=== PATIENT | female | born 1975 | race Caucasian/White ===

== ENCOUNTER 2020-04-07 16:04 | Emergency (ER) | payer OTHER ==
[~2020-04-07] VITALS: Ht 172.7 cm; Wt 81.7 kg
[~2020-04-07 16:04] MED LIST: ACETAMINOPHEN-1 EAC1 PO; AMBIEN 5 MG TABL5 M1 PO; ERY-TAB500 MG PO; HYDROCODON-ACE1 EAC7 PO; LIDOCAINE VISC100 M1 SWISH&SPIT; OXYCODONE HCL5 M1 PO; OXYCONTIN10 M1 PO; PROZAC20 MG PO; SEROQUEL 25 MG25 M1 PO; XANAX 0.25 MG0.25 MG PO; XANAX1 MG PO
[2020-04-07] MEDS ORDERED: VISTARIL 25 MG25 M1 PO (16:14)
[2020-04-07] MEDS ORDERED: VISTARIL 25 MG25 M1 (16:14)
[2020-04-07] MEDS ORDERED: CYMBALTA20 MG PO (16:15)
[2020-04-07] MEDS ORDERED: DESYREL150 MG PO (16:15)
[2020-04-07] MEDS ORDERED: LYRICA25 MG PO (16:15)
[2020-04-07] MEDS ORDERED: ESTROGEN (16:15)
[2020-04-07] MEDS ORDERED: HYDROCODON-ACE1 EAC7 PO (18:12)
[2020-04-07] MEDS ORDERED: CYCLOBENZAPRINE5 MG PO (18:12)
[2020-04-07] MEDS ORDERED: PREDNISONE50 MG PO (18:12)
[2020-04-07 18:30] VITALS: BP 130/76
== END 2020-04-07 18:32 | disposition home or self-care (01) ==
LOC: M.ERS 16:04
DX: S33.5XXA Sprain of ligaments of lumbar spine, initial encounter (principal); F17.210 Nicotine dependence, cigarettes, uncomplicated; Z90.49 Acquired absence of other specified parts of digestive tract; Z90.710 Acquired absence of both cervix and uterus; Z98.51 Tubal ligation status; Z88.0 Allergy status to penicillin; X50.9XXA Other and unspecified overexertion or strenuous movements or postures, initial encounter; Y93.89 Activity, other specified; Y92.89 Other specified places as the place of occurrence of the external cause; Y99.8 Other external cause status

== ENCOUNTER 2020-10-11 18:16 | Inpatient (IN) | payer OTHER, MEDICAID ==
[~2020-10-11] VITALS: Ht 172.7 cm; Wt 77.1 kg
[~2020-10-11 18:16] MED LIST changes: +CYCLOBENZAPRINE5 MG PO; +CYMBALTA20 MG PO; +DESYREL150 MG PO; +ESTROGEN; +LYRICA25 MG PO; +PREDNISONE50 MG PO; +VISTARIL 25 MG25 M1; +VISTARIL 25 MG25 M1 PO
[2020-10-11 18:25] VITALS: BP 116/75
[2020-10-11] MEDS ORDERED: SEROQUEL 50 MG50 M1 PO (18:28)
[2020-10-11] MEDS ORDERED: BUSPAR30 MG PO (18:29)
[2020-10-11 18:55] LABS: URINE BILIRUBIN NEGATIVE (Negative); URINE BLOOD 1+ (Negative); URINE CLARITY CLEAR; URINE COLOR YELLOW; URINE GLUCOSE-RANDOM NEGATIVE (Negative); URINE KETONES NEGATIVE (Negative); URINE LEUKOCYTES-REFLEX NEGATIVE (Negative); URINE NITRITE-REFLEX NEGATIVE (Negative); URINE PROTEIN NEGATIVE (Negative); URINE UROBILINOGEN 0.2 E.U./dl (0.2-1.0)
[2020-10-11 18:59] LABS: ABSOLUTE BASOPHILS 0.1 thou/uL (0.0-0.2); ABSOLUTE EOSINOPHILS 0.2 thou/uL (0.0-0.7); ABSOLUTE LYMPHOCYTES 2.6 thou/uL (0.8-5.3); ABSOLUTE MONOCYTES 0.7 thou/uL (0.0-1.2); BASOPHILS 0.6 %; EOSINOPHILS 1.6 %; HEMOGLOBIN 12.9 gm/dL (12.0-15.0); LYMPHOCYTES 27.2 %; MCH 30.2 pg (26.0-34.0); MCHC 33.8 g/dL (28.0-37.0); MCV 89.2 fL (80.0-100.0); MONOCYTES 7.1 %; MPV 7.5 fl. (7.2-11.1); NUCLEATED RBCS 0 /100WBC; PLATELET COUNT* 341 thou/uL (150-400); POLYS 63.5 %; RBC 4.26 mil/uL (4.20-5.00); RDW-CV 14.1 % (10.5-14.5); WBC 9.5 thou/uL (4.0-11.0)
[2020-10-11 19:01] LABS: CALCIUM 8.7 mg/dL (8.5-10.1); CREATININE 0.9 mg/dL (0.6-1.3); POTASSIUM 3.7 mmol/L (3.5-5.1)
[2020-10-11 19:02] LABS: MUCUS 4-6 Moderate strn/LPF (None Seen); SQUAMOUS >10 Many /LPF (0-3)
[2020-10-11 19:04] LABS: BACTERIA-REFLEX 1-9 Few /HPF (None Seen); CASTS None Seen /LPF (None Seen); CRYSTALS None Seen /LPF (None Seen); URINE RBC 0-2 Rare /HPF (0-2); URINE WBC-REFLEX 0-5 Rare /HPF (0-5)
[2020-10-11 19:05] LABS: ALBUMIN 3.5 g/dL (3.4-5.0); TOTAL BILIRUBIN 0.3 mg/dL (<0.1-1.0); TOTAL PROTEIN 7.2 g/dL (6.4-8.2)
[2020-10-11 22:53] VITALS: BP 105/65
[2020-10-11 23:13] VITALS: BP 129/73
--- NOTE | 2020-10-12 04:36 | NUR ---
PT HERE AROUND 0000. PAIN AN ISSUE, REPORTING /. RECEIVING MORPHINE/ZOFRAN Q4. NPO SINCE ARRIVAL WITH EXCEPTION OF A FEW ICE CHIPS. SHE HAS HAD IV FLUIDS ALL SHIFT. ALERT AND ORIENTED, ROOM AIR, UP AD SHONNA. SHE REPORTED SOME NAUSEA BUT NO VOMITING, PAIN STILL AN ISSUE.
[2020-10-12 05:44] LABS: ABSOLUTE EOSINOPHILS 0.1 thou/uL (0.0-0.7); ABSOLUTE LYMPHOCYTES 3.1 thou/uL (0.8-5.3); ABSOLUTE MONOCYTES 0.6 thou/uL (0.0-1.2); ABSOLUTE NEUTROPHILS 3.7 thou/uL (1.6-8.1); BASOPHILS 0.5 %; EOSINOPHILS 1.7 %; HEMATOCRIT 37.4 % (37.0-47.0); HEMOGLOBIN 12.3 gm/dL (12.0-15.0); LYMPHOCYTES 40.9 %; MCH 29.5 pg (26.0-34.0); MCHC 32.9 g/dL (28.0-37.0); MCV 89.5 fL (80.0-100.0); MONOCYTES 7.6 %; MPV 7.6 fl. (7.2-11.1); NUCLEATED RBCS 0 /100WBC; PLATELET COUNT* 333 thou/uL (150-400); POLYS 49.3 %; RBC 4.17 mil/uL (4.20-5.00); RDW-CV 14.1 % (10.5-14.5); WBC 7.5 thou/uL (4.0-11.0)
[2020-10-12 05:46] LABS: CREATININE 0.8 mg/dL (0.6-1.3); POTASSIUM 3.8 mmol/L (3.5-5.1)
[2020-10-12 05:51] LABS: TOTAL BILIRUBIN 0.4 mg/dL (<0.1-1.0); TOTAL PROTEIN 6.4 g/dL (6.4-8.2)
[2020-10-12 16:00] VITALS: BP 93/50
--- NOTE | 2020-10-12 17:50 | NUR ---
Pt remained A&O x4 for entire shift. Vital signs stable. Pt in severe pain this morning and needing the IV pain medication frequency increased from Q3 to Q4. Pt also notified Dr. Rashid during her rounds that she had a severe headache. Dr. Rashid ordered meds and they were given. Pt stated she felt like it helped. Pt later informed surgery that she really wants to go home today. Surgery stated that she was clear from their standpoint. I spoke with the pt educating her that if she left she would be without the IV pain medication and pt felt like she could handle the pain until her follow up with a GI doctor on 10/22. Dr. Rashid was paged and agreed that it was not safe for pt to discharge home at this time. Pt's diet was advanced and oral pain meds started so that we could look to get off the IV pain medications and tolerate more food. Pt noted later that she had another headache. Pt given Tylenol and benedryl. Bed in low position, call light within reach.
[2020-10-12 20:13] VITALS: BP 100/50
[2020-10-13 05:17] LABS: HEMATOCRIT 35.2 % (37.0-47.0); HEMOGLOBIN 11.9 gm/dL (12.0-15.0); MCH 30.5 pg (26.0-34.0); MCHC 33.7 g/dL (28.0-37.0); MCV 90.3 fL (80.0-100.0); MPV 7.6 fl. (7.2-11.1); RBC 3.9 mil/uL (4.20-5.00); RDW-CV 14.1 % (10.5-14.5); WBC 5.6 thou/uL (4.0-11.0)
--- NOTE | 2020-10-13 05:23 | NUR ---
PT RECEIVE NORCO Q3 FOR PAIN, FLUIDS SCHEDULED. SHE WAS ABLE TO SLEEP ALL NIGHT. SHE IS STILL HAVING SIGNIFICANT PAIN 02/13. ROOM AIR, ALERT AND ORIENTED. TOLERATING DIET/FLUIDS WELL.
[2020-10-13 05:42] LABS: ALBUMIN 2.7 g/dL (3.4-5.0); CALCIUM 7.9 mg/dL (8.5-10.1); CREATININE 0.7 mg/dL (0.6-1.3); MAGNESIUM 2.2 mg/dL (1.8-2.4); POTASSIUM 3.9 mmol/L (3.5-5.1); TOTAL BILIRUBIN 0.4 mg/dL (<0.1-1.0); TOTAL PROTEIN 5.9 g/dL (6.4-8.2)
[2020-10-13 08:00] VITALS: BP 111/59
[2020-10-13] MEDS ORDERED: CIPRO500 M1 PO (08:28)
[2020-10-13] MEDS ORDERED: FLAGYL500 M1 PO (08:28)
[2020-10-13] MEDS ORDERED: HYDROCODON-ACE1 EAC7 PO (08:29)
[2020-10-13 10:20] LABS: % SATURATION 24 % (20-39); IRON 82 ug/dL (50-175)
[2020-10-13 11:09] VITALS: BP 111/59
--- NOTE | 2020-10-13 12:22 | NUR ---
Pt remained A&O x4. Pt complained of pain and given meds per MAR. Pt was going to get a colonoscopy tomorrow but has court instead so she could not stay. Pt discharged. Pt has outpatient appointment with GI on 10/22. Pt ambulated outof building using steady gait.
[2020-10-13 12:29] VITALS: BP 111/59
--- NOTE | 2020-10-13 15:20 | EKG ---
[place] [address] ELECTROCARDIOGRAM REPORT Name: AIDA FONTANA Room: [address] IN .R.#: [id number] Admission: 10/11/20 Attend Phys: Jaelyn Rashid, Discharge: 10/13/20 Date of : 79 Date of Service: 10/11/20 1900 Report #: [id number] THIS REPORT FOR: //name// [facility] ED Test Date: 2020-10-11 Test Time: 19:00:00 Pat Name: AIDA FONTANA Department: Room: [facility] Gender: F Seasonal Package Handler: CASSIDY : 1975 Requested By: Francheska Erickson Order Number: [id number] MD: Kennedy Whiting Measurements Intervals [place] Rate: 63 P: 36 [place]: 154 QRS: 63 QRSD: 89 T: 62 QT: 401 QTc: 411 Interpretive Statements Sinus rhythm Abnormal inferior Q waves Compared to ECG 08/09/2014 13:44:50 Inferior Q waves persist Electronically Signed On 10-13-2020 15:19:59 CDT by Kennedy Whiting [email or web address] <ELECTRONICALLY SIGNED> By: Kennedy Whiting MD, [facility] 10/13/20 1519 190 190 Kennedy Whiting MD, [facility] /EPI
--- NOTE | 2020-10-15 15:34 | CON ---
[address] [address] CONSULTATION Name: AIDA FONTANA Room: [address] [place] .R.#: [id number] Admission: 10/11/20 Attend Phys: Jaelyn Rashid MD Discharge: 10/13/20 Date of : 79 Report #: [id number] THIS REPORT FOR: cc: FAM - No family physician/PCP FAM - No family physician/PCP Tone Alanis DO ~ DOC #: [id number] SURENDRA Ralph DATE OF CONSULTATION: 10/13/2020 The patient does not have a PCP. Please note at the time of this dictation, the patient was seen and physically examined by myself. REASON FOR CONSULTATION: Abdominal pain, colitis. HISTORY OF PRESENT ILLNESS: This is a 45-year-old female who states she has been having lower abdominal pain over the past two weeks, which has progressively gotten worse where she could not take it any longer, whom she has an appointment with us on 10/22 and could not last that long, prompting her to come in to be seen. She states the pain is sharp and made worse with walking and activity, coughing and sneezing. She states her last bowel movement was the day of admission and it was soft with some bright red blood noted which she has not had before. She also is having some nausea, but no fever, chills or any vomiting. She does have a longstanding history of chronic back pain. The patient has never seen a GI doctor before in the past. ALLERGIES: PENICILLIN. MEDICATIONS: From home, Cymbalta, estrogen, Seroquel and BuSpar. PAST MEDICAL HISTORY: Chronic back pain. PAST SURGICAL HISTORY: Cholecystectomy, tubal ligation, tonsil and adenoidectomy, broken arm with surgery and hysterectomy. FAMILY HISTORY: Negative for any GI or female cancers or autoimmune disease. SOCIAL HISTORY: She is a tobacco user. Denies any alcohol or illegal drug use. REVIEW OF SYSTEMS: Twelve point review of systems is essentially negative except what is mentioned in the HPI. PHYSICAL EXAMINATION: [place] [address] CONSULTATION Name: AIDA FONTANA Room: [address] IN [facility]#: [id number] Admission: 10/11/20 Attend Phys: Jaelyn Rashid MD Discharge: 10/13/20 Date of : 79 Report #: [id number] VITAL SIGNS: Temperature 36.3, pulse 64, respirations are 18, blood pressure 100/50. HEART: Regular rate and rhythm. LUNGS: Clear. ABDOMEN: Soft, positive bowel sounds in all four quadrants with tenderness noted in the lower quad, more so towards the right. LABORATORY DATA: Hemoglobin is 11.9, white count is 5.6, platelets 297. LFTs are normal. GFR is 91. IMAGING: CT shows some thickening of the tissues and inflammation along the right pelvic sidewall, tip of the appendix terminates in this region. Remainder of appendix appears normal. Tips of the appendicitis could give this appearance, fibrosing and scarring could be given her past history of hysterectomy and pelvic surgery and also she has some right hydronephrosis and hydroureter as well. ASSESSMENT: 1. Abdominal pain. 2. Diarrhea. 3. Blood in stool. 4. Nausea, intermittent. 5. Abnormal CT. 6. Mild anemia. PLAN: 1. Colonoscopy tomorrow with Dr. Alanis. 2. Further recommendations to be made after the procedure has been performed. 3. Prep and clear liquids today. Thank you for allowing us to participate in this patient's care. Please do not hesitate to call with any questions regarding this consultation. Tone Alanis DO JLB/GAU <ELECTRONICALLY SIGNED> By: Tone Alanis DO 10/15/20 1534 [id number] Alanis DO /nt
== END 2020-10-13 12:15 | disposition home or self-care (01) | DRG 392 ==
LOC: M.ERS 18:16 → M.ORTHSURG 22:21 → M.TBA-ER 22:21 → M.ORTHSURG 22:54
PROVIDERS: Nurse Practitioner Adult Health; Nurse Practitioner Family; Surgery; ADMIT Internal Medicine; ATTEND Internal Medicine
DX: K52.9 Noninfective gastroenteritis and colitis, unspecified (principal); N13.30 Unspecified hydronephrosis; N13.4 Hydroureter; F41.9 Anxiety disorder, unspecified; F32.9 Major depressive disorder, single episode, unspecified; G89.29 Other chronic pain; M54.9 Dorsalgia, unspecified; D64.9 Anemia, unspecified; G43.909 Migraine, unspecified, not intractable, without status migrainosus; Z20.822 Contact with and (suspected) exposure to COVID-19; Z90.49 Acquired absence of other specified parts of digestive tract; Z90.710 Acquired absence of both cervix and uterus; Z79.899 Other long term (current) drug therapy; Z88.0 Allergy status to penicillin

== ENCOUNTER 2020-10-22 18:11 | Emergency (ER) | payer OTHER, MEDICAID ==
[~2020-10-22] VITALS: Ht 172.7 cm; Wt 77.1 kg
[~2020-10-22 18:11] MED LIST changes: +BUSPAR30 MG PO; +CIPRO500 M1 PO; +FLAGYL500 M1 PO; +SEROQUEL 50 MG50 M1 PO
[2020-10-22] MEDS ORDERED: NAPROSYN500 MG PO (19:30)
[2020-10-22 19:47] VITALS: BP 120/80
== END 2020-10-22 19:48 | disposition home or self-care (01) ==
LOC: M.ERS 18:11
DX: S60.211A Contusion of right wrist, initial encounter (principal); S60.221A Contusion of right hand, initial encounter; F41.9 Anxiety disorder, unspecified; F32.9 Major depressive disorder, single episode, unspecified; F17.210 Nicotine dependence, cigarettes, uncomplicated; Z90.49 Acquired absence of other specified parts of digestive tract; Z98.51 Tubal ligation status; Z90.711 Acquired absence of uterus with remaining cervical stump; Z79.899 Other long term (current) drug therapy; Z79.2 Long term (current) use of antibiotics; Z88.0 Allergy status to penicillin; Y08.89XA Assault by other specified means, initial encounter; Y93.89 Activity, other specified; Y92.89 Other specified places as the place of occurrence of the external cause; Y99.8 Other external cause status

== ENCOUNTER 2020-11-03 18:59 | Emergency (ER) | payer OTHER, MEDICAID ==
[~2020-11-03] VITALS: Ht 172.7 cm; Wt 86.2 kg
[~2020-11-03 18:59] MED LIST changes: +NAPROSYN500 MG PO
[2020-11-03] MEDS ORDERED: CLONAZEPAM 0.50.5 M1 PO (19:09)
[2020-11-03] MEDS ORDERED: PROPRANOLOL 4040 M1 PO (19:09)
[2020-11-03] MEDS ORDERED: LAMOTRIGINE250 MG PO (19:10)
[2020-11-03 19:28] LABS: ABSOLUTE BASOPHILS 0.1 thou/uL (0.0-0.2); ABSOLUTE EOSINOPHILS 0.2 thou/uL (0.0-0.7); ABSOLUTE MONOCYTES 0.5 thou/uL (0.0-1.2); ABSOLUTE NEUTROPHILS 3.7 thou/uL (1.6-8.1); BASOPHILS 0.9 %; EOSINOPHILS 2.2 %; HEMATOCRIT 39.2 % (37.0-47.0); HEMOGLOBIN 13.4 gm/dL (12.0-15.0); LYMPHOCYTES 39.9 %; MCH 30.1 pg (26.0-34.0); MCHC 34.2 g/dL (28.0-37.0); MCV 88.1 fL (80.0-100.0); MONOCYTES 7.1 %; MPV 7.7 fl. (7.2-11.1); NUCLEATED RBCS 0 /100WBC; PLATELET COUNT* 340 thou/uL (150-400); POLYS 49.9 %; RBC 4.45 mil/uL (4.20-5.00); RDW-CV 13.9 % (10.5-14.5); WBC 7.5 thou/uL (4.0-11.0)
[2020-11-03 19:31] LABS: URINE BILIRUBIN NEGATIVE (Negative); URINE BLOOD 1+ (Negative); URINE CLARITY CLEAR; URINE COLOR YELLOW; URINE GLUCOSE-RANDOM NEGATIVE (Negative); URINE KETONES NEGATIVE (Negative); URINE LEUKOCYTES-REFLEX NEGATIVE (Negative); URINE NITRITE-REFLEX NEGATIVE (Negative); URINE PROTEIN NEGATIVE (Negative); URINE UROBILINOGEN 0.2 E.U./dl (0.2-1.0)
[2020-11-03 19:36] LABS: ANION GAP 9 mmol/L (7-16); BUN 9 mg/dL (7-18); CALCIUM 9.1 mg/dL (8.5-10.1); CHLORIDE 106 mmol/L (98-107); CO2 29 mmol/L (21-32); CREATININE 0.8 mg/dL (0.6-1.3); GLUCOSE 87 mg/dL (70-99); POTASSIUM 3.7 mmol/L (3.5-5.1); SODIUM 144 mmol/L (136-145)
[2020-11-03 19:37] LABS: AMP/METHAMP Negative (Negative); BARBITURATES Negative (Negative); BENZODIAZEPINES Negative (Negative); COCAINE Negative (Negative); METHADONE Negative (Negative); OPIATES Negative (Negative); PCP Negative (Negative); THC Negative (Negative)
[2020-11-03 19:40] LABS: ALBUMIN 3.6 g/dL (3.4-5.0); ALKALINE PHOSPHATASE 105 U/L (46-116); LIPASE 186 U/L (73-393); SGOT 15 U/L (15-37); SGPT 29 U/L (30-65); TOTAL BILIRUBIN < 0.1 mg/dL (<0.1-1.0); TOTAL PROTEIN 7.4 g/dL (6.4-8.2)
[2020-11-03 19:43] LABS: BACTERIA-REFLEX 1-9 Few /HPF (None Seen); CASTS None Seen /LPF (None Seen); CRYSTALS None Seen /LPF (None Seen); SQUAMOUS 0-3 Few /LPF (0-3); URINE WBC-REFLEX 0-5 Rare /HPF (0-5)
[2020-11-03 19:44] LABS: URINE RBC 0-2 Rare /HPF (0-2)
[2020-11-03] MEDS ORDERED: BENTYL 10 MG CA10 M1 PO (22:22)
[2020-11-03] MEDS ORDERED: NEURONTIN100 MG PO (22:22)
[2020-11-03 23:05] VITALS: BP 121/77
== END 2020-11-03 23:05 | disposition home or self-care (01) ==
LOC: M.ERS 18:59
PROVIDERS: Emergency Medicine
DX: R10.31 Right lower quadrant pain (principal); F17.210 Nicotine dependence, cigarettes, uncomplicated; Z88.0 Allergy status to penicillin; Z79.899 Other long term (current) drug therapy; Z90.49 Acquired absence of other specified parts of digestive tract; Z90.710 Acquired absence of both cervix and uterus; Z98.890 Other specified postprocedural states; Z98.51 Tubal ligation status

== ENCOUNTER 2020-12-23 13:29 | Emergency (ER) | payer OTHER, MEDICAID ==
[~2020-12-23] VITALS: Ht 172.7 cm; Wt 88.5 kg
[~2020-12-23 13:29] MED LIST changes: +BENTYL 10 MG CA10 M1 PO; +CLONAZEPAM 0.50.5 M1 PO; +LAMOTRIGINE250 MG PO; +NEURONTIN100 MG PO; +PROPRANOLOL 4040 M1 PO
[2020-12-23 14:50] LABS: URINE BILIRUBIN NEGATIVE (Negative); URINE BLOOD 1+ (Negative); URINE CLARITY CLEAR; URINE COLOR YELLOW; URINE GLUCOSE-RANDOM NEGATIVE (Negative); URINE KETONES NEGATIVE (Negative); URINE LEUKOCYTES-REFLEX 1+ (Negative); URINE NITRITE-REFLEX NEGATIVE (Negative); URINE PROTEIN NEGATIVE (Negative); URINE SPECIFIC GRAVITY <= 1.005 (1.005-1.030); URINE UROBILINOGEN 0.2 E.U./dl (0.2-1.0)
[2020-12-23 14:55] LABS: SQUAMOUS 0-3 Few /LPF (0-3); URINE WBC-REFLEX 0-5 Rare /HPF (0-5)
[2020-12-23 14:56] LABS: BACTERIA-REFLEX 1-9 Few /HPF (None Seen); CASTS None Seen /LPF (None Seen); CRYSTALS None Seen /LPF (None Seen); URINE RBC 3-10 Few /HPF (0-2)
[2020-12-23 15:06] LABS: ABSOLUTE BASOPHILS 0.1 thou/uL (0.0-0.2); ABSOLUTE EOSINOPHILS 0.1 thou/uL (0.0-0.7); ABSOLUTE LYMPHOCYTES 2.2 thou/uL (0.8-5.3); ABSOLUTE MONOCYTES 0.6 thou/uL (0.0-1.2); ABSOLUTE NEUTROPHILS 5.6 thou/uL (1.6-8.1); BASOPHILS 0.7 %; EOSINOPHILS 1.6 %; HEMATOCRIT 40.4 % (37.0-47.0); HEMOGLOBIN 13.8 gm/dL (12.0-15.0); LYMPHOCYTES 25.8 %; MCV 88.1 fL (80.0-100.0); MONOCYTES 7.3 %; MPV 7.8 fl. (7.2-11.1); NUCLEATED RBCS 0 /100WBC; PLATELET COUNT* 321 thou/uL (150-400); POLYS 64.6 %; RBC 4.59 mil/uL (4.20-5.00); RDW-CV 13.3 % (10.5-14.5); WBC 8.7 thou/uL (4.0-11.0)
[2020-12-23 15:19] LABS: CALCIUM 8.5 mg/dL (8.5-10.1); CREATININE 0.7 mg/dL (0.6-1.3); POTASSIUM 3.9 mmol/L (3.5-5.1)
[2020-12-23 15:24] LABS: ALBUMIN 3.3 g/dL (3.4-5.0); TOTAL BILIRUBIN 0.2 mg/dL (<0.1-1.0); TOTAL PROTEIN 7.2 g/dL (6.4-8.2)
[2020-12-23] MEDS ORDERED: BENTYL 10 MG CA10 MG PO (16:41)
[2020-12-23 16:58] VITALS: BP 112/72
== END 2020-12-23 16:58 | disposition home or self-care (01) ==
LOC: M.ERS 13:29
PROVIDERS: Nurse Practitioner Family; Nurse Practitioner Psychiatric/Mental Health
DX: R10.84 Generalized abdominal pain (principal); F17.210 Nicotine dependence, cigarettes, uncomplicated; Z88.0 Allergy status to penicillin; Z90.49 Acquired absence of other specified parts of digestive tract; Z98.51 Tubal ligation status; Z90.710 Acquired absence of both cervix and uterus; Z90.89 Acquired absence of other organs

== ENCOUNTER 2021-01-16 11:24 | Emergency (ER) | payer OTHER, MEDICAID ==
[~2021-01-16] VITALS: Ht 172.7 cm; Wt 88.5 kg
[~2021-01-16 11:24] MED LIST changes: +BENTYL 10 MG CA10 MG PO
[2021-01-16 12:38] LABS: ABSOLUTE MONOCYTES 0.5 thou/uL (0.0-1.2); ABSOLUTE NEUTROPHILS 2.9 thou/uL (1.6-8.1); BASOPHILS 0.9 %; EOSINOPHILS 0.4 %; HEMATOCRIT 39.1 % (37.0-47.0); HEMOGLOBIN 12.9 gm/dL (12.0-15.0); MCH 28.8 pg (26.0-34.0); MCHC 33.1 g/dL (28.0-37.0); MCV 87.1 fL (80.0-100.0); MPV 7.5 fl. (7.2-11.1); NUCLEATED RBCS 0 /100WBC; PLATELET COUNT* 254 thou/uL (150-400); POLYS 64.7 %; RBC 4.49 mil/uL (4.20-5.00); RDW-CV 13.5 % (10.5-14.5); WBC 4.5 thou/uL (4.0-11.0)
[2021-01-16 12:44] LABS: URINE BILIRUBIN NEGATIVE (Negative); URINE BLOOD 1+ (Negative); URINE CLARITY CLEAR; URINE COLOR YELLOW; URINE GLUCOSE-RANDOM NEGATIVE (Negative); URINE KETONES NEGATIVE (Negative); URINE LEUKOCYTES-REFLEX NEGATIVE (Negative); URINE NITRITE-REFLEX NEGATIVE (Negative); URINE PROTEIN NEGATIVE (Negative); URINE SPECIFIC GRAVITY <= 1.005 (1.005-1.030); URINE UROBILINOGEN 0.2 E.U./dl (0.2-1.0)
[2021-01-16 12:46] LABS: CALCIUM 8.3 mg/dL (8.5-10.1); POTASSIUM 3.6 mmol/L (3.5-5.1)
[2021-01-16 12:46] LABS: BACTERIA-REFLEX 1-9 Few /HPF (None Seen); CASTS None Seen /LPF (None Seen); CRYSTALS None Seen /LPF (None Seen); MUCUS None Seen strn/LPF (None Seen); SQUAMOUS 0-3 Few /LPF (0-3); URINE RBC 0-2 Rare /HPF (0-2); URINE WBC-REFLEX None Seen /HPF (0-5)
[2021-01-16 12:51] LABS: ALBUMIN 3.3 g/dL (3.4-5.0); TOTAL BILIRUBIN 0.2 mg/dL (<0.1-1.0); TOTAL PROTEIN 6.8 g/dL (6.4-8.2)
[2021-01-16] MEDS ORDERED: CENTANY30 GM TOP (14:04)
[2021-01-16] MEDS ORDERED: APAP W/CODEINE1 TA2 PO (14:04)
[2021-01-16] MEDS ORDERED: DOXYCYCLINE 10100 MG PO (14:04)
[2021-01-16 14:34] VITALS: BP 116/70
== END 2021-01-16 14:35 | disposition home or self-care (01) ==
LOC: M.ERS 11:24
PROVIDERS: Physician Assistant
DX: L03.311 Cellulitis of abdominal wall (principal); F17.210 Nicotine dependence, cigarettes, uncomplicated; Z90.49 Acquired absence of other specified parts of digestive tract; Z90.710 Acquired absence of both cervix and uterus; Z88.0 Allergy status to penicillin

== ENCOUNTER 2021-02-26 18:30 | Emergency (ER) | payer OTHER, MEDICAID ==
[~2021-02-26] VITALS: Ht 172.7 cm; Wt 88.5 kg
[~2021-02-26 18:30] MED LIST changes: +APAP W/CODEINE1 TA2 PO; +CENTANY30 GM TOP; +DOXYCYCLINE 10100 MG PO
[2021-02-26 18:45] VITALS: BP 115/54
[2021-02-26] MEDS ORDERED: APAP W/CODEINE1 TA2 PO (19:38)
[2021-02-26] MEDS ORDERED: FLEXERIL PO (19:38)
[2021-02-26] MEDS ORDERED: MEDROLDOSEPACK PO (19:38)
== END 2021-02-26 19:55 | disposition home or self-care (01) ==
LOC: M.ERS 18:30
DX: M54.5 Low back pain (principal); F41.9 Anxiety disorder, unspecified; F32.9 Major depressive disorder, single episode, unspecified; F17.210 Nicotine dependence, cigarettes, uncomplicated; Z90.49 Acquired absence of other specified parts of digestive tract; Z90.89 Acquired absence of other organs; Z90.711 Acquired absence of uterus with remaining cervical stump; Z79.2 Long term (current) use of antibiotics; Z79.899 Other long term (current) drug therapy; Z88.0 Allergy status to penicillin

== ENCOUNTER 2021-05-11 13:55 | Emergency (ER) | payer OTHER, MEDICAID ==
[~2021-05-11] VITALS: Ht 172.7 cm; Wt 88.5 kg
[~2021-05-11 13:55] MED LIST changes: +FLEXERIL PO; +MEDROLDOSEPACK PO
[2021-05-11] MEDS ORDERED: PROZAC40 MG PO (14:03)
[2021-05-11] MEDS ORDERED: VISTARIL50 MG PO (14:03)
[2021-05-11] MEDS ORDERED: HYDROCODON-ACE1 EAC7 PO (15:40)
[2021-05-11 15:54] VITALS: BP 122/71
== END 2021-05-11 15:55 | disposition home or self-care (01) ==
LOC: M.ERS 13:55
DX: S60.211A Contusion of right wrist, initial encounter (principal); F17.210 Nicotine dependence, cigarettes, uncomplicated; F32.9 Major depressive disorder, single episode, unspecified; F41.9 Anxiety disorder, unspecified; Z90.49 Acquired absence of other specified parts of digestive tract; Z98.51 Tubal ligation status; Z90.710 Acquired absence of both cervix and uterus; Z90.89 Acquired absence of other organs; Z79.899 Other long term (current) drug therapy; Z88.0 Allergy status to penicillin; W01.0XXA Fall on same level from slipping, tripping and stumbling without subsequent striking against object, initial encounter; Y93.89 Activity, other specified; Y92.89 Other specified places as the place of occurrence of the external cause; Y99.8 Other external cause status

== ENCOUNTER 2021-06-01 20:36 | Emergency (ER) | payer OTHER, MEDICAID ==
[~2021-06-01] VITALS: Ht 172.7 cm; Wt 88.5 kg
[~2021-06-01 20:36] MED LIST changes: +PROZAC40 MG PO; +VISTARIL50 MG PO
[2021-06-01 23:19] LABS: URINE BILIRUBIN NEGATIVE (Negative); URINE BLOOD TRACE (Negative); URINE CLARITY CLEAR; URINE COLOR YELLOW; URINE GLUCOSE-RANDOM NEGATIVE (Negative); URINE KETONES NEGATIVE (Negative); URINE LEUKOCYTES-REFLEX NEGATIVE (Negative); URINE NITRITE-REFLEX NEGATIVE (Negative); URINE PROTEIN NEGATIVE (Negative); URINE UROBILINOGEN 0.2 E.U./dl (0.2-1.0)
[2021-06-02 00:35] LABS: AMP/METHAMP Negative (Negative); BARBITURATES Negative (Negative); BENZODIAZEPINES Negative (Negative); COCAINE Negative (Negative); METHADONE Negative (Negative); OPIATES Negative (Negative); PCP Negative (Negative); THC Negative (Negative)
[2021-06-02 00:35] LABS: ABSOLUTE EOSINOPHILS 0.1 thou/uL (0.0-0.7); ABSOLUTE LYMPHOCYTES 2.6 thou/uL (0.8-5.3); ABSOLUTE MONOCYTES 0.4 thou/uL (0.0-1.2); ABSOLUTE NEUTROPHILS 3.6 thou/uL (1.6-8.1); BASOPHILS 0.5 %; EOSINOPHILS 1.4 %; HEMATOCRIT 38.2 % (37.0-47.0); HEMOGLOBIN 12.7 gm/dL (12.0-15.0); LYMPHOCYTES 38.6 %; MCH 28.6 pg (26.0-34.0); MCHC 33.2 g/dL (28.0-37.0); MCV 86.2 fL (80.0-100.0); MONOCYTES 5.9 %; MPV 7.5 fl. (7.2-11.1); NUCLEATED RBCS 0 /100WBC; PLATELET COUNT* 329 thou/uL (150-400); POLYS 53.6 %; RBC 4.43 mil/uL (4.20-5.00); RDW-CV 13.6 % (10.5-14.5); WBC 6.7 thou/uL (4.0-11.0)
[2021-06-02 00:43] LABS: CALCIUM 8.5 mg/dL (8.5-10.1); CREATININE 0.8 mg/dL (0.6-1.3); POTASSIUM 3.8 mmol/L (3.5-5.1)
[2021-06-02] MEDS ORDERED: HYDROCODON-ACE1 EAC8 PO (01:59)
[2021-06-02] MEDS ORDERED: ZOFRAN ODT4 MG PO (01:59)
[2021-06-02 02:19] VITALS: BP 120/73
== END 2021-06-02 02:19 | disposition home or self-care (01) ==
LOC: M.ERS 20:36
PROVIDERS: Emergency Medicine
DX: R10.31 Right lower quadrant pain (principal); Z20.822 Contact with and (suspected) exposure to COVID-19; R32 Unspecified urinary incontinence; F41.9 Anxiety disorder, unspecified; F32.9 Major depressive disorder, single episode, unspecified; F17.210 Nicotine dependence, cigarettes, uncomplicated; Z90.710 Acquired absence of both cervix and uterus; Z90.89 Acquired absence of other organs; Z90.49 Acquired absence of other specified parts of digestive tract; Z79.899 Other long term (current) drug therapy; Z88.0 Allergy status to penicillin

== ENCOUNTER 2021-06-07 16:10 | Emergency (ER) | payer OTHER, MEDICAID ==
[~2021-06-07] VITALS: Ht 172.7 cm; Wt 88.5 kg
[~2021-06-07 16:10] MED LIST changes: +HYDROCODON-ACE1 EAC8 PO; +ZOFRAN ODT4 MG PO
[2021-06-07 19:14] LABS: ABSOLUTE BASOPHILS 0.1 thou/uL (0.0-0.2); ABSOLUTE EOSINOPHILS 0.1 thou/uL (0.0-0.7); ABSOLUTE LYMPHOCYTES 2.5 thou/uL (0.8-5.3); ABSOLUTE MONOCYTES 0.5 thou/uL (0.0-1.2); ABSOLUTE NEUTROPHILS 6.9 thou/uL (1.6-8.1); BASOPHILS 0.9 %; EOSINOPHILS 1.2 %; HEMATOCRIT 39.5 % (37.0-47.0); HEMOGLOBIN 13.4 gm/dL (12.0-15.0); LYMPHOCYTES 24.7 %; MCH 28.6 pg (26.0-34.0); MCHC 33.9 g/dL (28.0-37.0); MCV 84.5 fL (80.0-100.0); MONOCYTES 4.8 %; MPV 7.8 fl. (7.2-11.1); NUCLEATED RBCS 0 /100WBC; PLATELET COUNT* 365 thou/uL (150-400); POLYS 68.4 %; RBC 4.67 mil/uL (4.20-5.00); RDW-CV 13.6 % (10.5-14.5); WBC 10.1 thou/uL (4.0-11.0)
[2021-06-07 19:19] LABS: URINE BILIRUBIN NEGATIVE (Negative); URINE BLOOD TRACE (Negative); URINE COLOR YELLOW; URINE GLUCOSE-RANDOM NEGATIVE (Negative); URINE KETONES NEGATIVE (Negative); URINE LEUKOCYTES-REFLEX 1+ (Negative); URINE NITRITE-REFLEX NEGATIVE (Negative); URINE PROTEIN NEGATIVE (Negative); URINE SPECIFIC GRAVITY <= 1.005 (1.005-1.030); URINE UROBILINOGEN 0.2 E.U./dl (0.2-1.0)
[2021-06-07 19:21] LABS: URINE CLARITY HAZY
[2021-06-07 19:22] LABS: BACTERIA-REFLEX None Seen /HPF (None Seen); CASTS None Seen /LPF (None Seen); CRYSTALS None Seen /LPF (None Seen); SQUAMOUS 0-3 Few /LPF (0-3); URINE RBC None Seen /HPF (0-2); URINE WBC-REFLEX 0-5 Rare /HPF (0-5)
[2021-06-07 19:23] LABS: CALCIUM 8.5 mg/dL (8.5-10.1); CREATININE 0.8 mg/dL (0.6-1.3)
[2021-06-07 19:55] LABS: TOTAL BILIRUBIN 0.3 mg/dL (<0.1-1.0)
[2021-06-07 19:56] LABS: ALBUMIN 3.3 g/dL (3.4-5.0)
[2021-06-07 19:59] LABS: POTASSIUM 4.7 mmol/L (3.5-5.1)
[2021-06-07] MEDS ORDERED: APAP W/CODEINE1 TA2 PO (21:11)
[2021-06-07] MEDS ORDERED: PHENAZOPYRIDIN200 M2 PO (21:11)
[2021-06-07] MEDS ORDERED: BACTRIM DS TAB1 EACH PO (21:11)
[2021-06-07 21:20] VITALS: BP 134/95
== END 2021-06-07 21:20 | disposition home or self-care (01) ==
LOC: M.ERS 16:10
PROVIDERS: Physician Assistant
DX: N30.00 Acute cystitis without hematuria (principal); F41.0 Panic disorder [episodic paroxysmal anxiety]; F32.9 Major depressive disorder, single episode, unspecified; Z90.49 Acquired absence of other specified parts of digestive tract; F17.210 Nicotine dependence, cigarettes, uncomplicated; Z98.51 Tubal ligation status; Z90.710 Acquired absence of both cervix and uterus; Z90.89 Acquired absence of other organs; Z79.899 Other long term (current) drug therapy; Z88.0 Allergy status to penicillin

== ENCOUNTER 2021-06-19 21:37 | Emergency (ER) | payer OTHER, MEDICAID ==
[~2021-06-19] VITALS: Ht 172.7 cm; Wt 88.5 kg
[~2021-06-19 21:37] MED LIST changes: +BACTRIM DS TAB1 EACH PO; +PHENAZOPYRIDIN200 M2 PO
[2021-06-19 23:13] LABS: URINE BILIRUBIN NEGATIVE (Negative); URINE BLOOD 1+ (Negative); URINE CLARITY CLEAR; URINE COLOR YELLOW; URINE GLUCOSE-RANDOM NEGATIVE (Negative); URINE KETONES NEGATIVE (Negative); URINE LEUKOCYTES-REFLEX NEGATIVE (Negative); URINE NITRITE-REFLEX NEGATIVE (Negative); URINE PROTEIN NEGATIVE (Negative); URINE UROBILINOGEN 0.2 E.U./dl (0.2-1.0)
[2021-06-19 23:19] LABS: AMP/METHAMP Negative (Negative); BARBITURATES Negative (Negative); BENZODIAZEPINES Negative (Negative); COCAINE Negative (Negative); METHADONE Negative (Negative); OPIATES Negative (Negative); PCP Negative (Negative); THC Negative (Negative)
[2021-06-19 23:44] LABS: ABSOLUTE BASOPHILS 0.1 thou/uL (0.0-0.2); ABSOLUTE EOSINOPHILS 0.1 thou/uL (0.0-0.7); ABSOLUTE LYMPHOCYTES 2.1 thou/uL (0.8-5.3); ABSOLUTE MONOCYTES 0.4 thou/uL (0.0-1.2); ABSOLUTE NEUTROPHILS 7.8 thou/uL (1.6-8.1); BASOPHILS 0.5 %; EOSINOPHILS 1.1 %; HEMATOCRIT 38.8 % (37.0-47.0); HEMOGLOBIN 13.1 gm/dL (12.0-15.0); MCH 28.9 pg (26.0-34.0); MCHC 33.8 g/dL (28.0-37.0); MCV 85.5 fL (80.0-100.0); MONOCYTES 3.9 %; MPV 7.8 fl. (7.2-11.1); NUCLEATED RBCS 0 /100WBC; PLATELET COUNT* 299 thou/uL (150-400); POLYS 74.5 %; RBC 4.54 mil/uL (4.20-5.00); WBC 10.5 thou/uL (4.0-11.0)
[2021-06-19 23:55] LABS: CALCIUM 8.2 mg/dL (8.5-10.1); CREATININE 0.8 mg/dL (0.6-1.3); POTASSIUM 3.8 mmol/L (3.5-5.1)
[2021-06-19 23:58] LABS: CASTS None Seen /LPF (None Seen); SQUAMOUS 4-10 Moderate /LPF (0-3)
[2021-06-19 23:59] LABS: BACTERIA-REFLEX None Seen /HPF (None Seen); CRYSTALS None Seen /LPF (None Seen); URINE RBC 3-10 Few /HPF (0-2); URINE WBC-REFLEX 0-5 Rare /HPF (0-5)
[2021-06-20 00:09] LABS: ALBUMIN 3.3 g/dL (3.4-5.0); TOTAL BILIRUBIN 0.2 mg/dL (<0.1-1.0); TOTAL PROTEIN 6.9 g/dL (6.4-8.2)
[2021-06-20 01:11] VITALS: BP 120/62
== END 2021-06-20 01:13 | disposition home or self-care (01) ==
LOC: M.ERS 21:37
PROVIDERS: Emergency Medicine
DX: R10.31 Right lower quadrant pain (principal); R11.2 Nausea with vomiting, unspecified; R68.83 Chills (without fever); F32.9 Major depressive disorder, single episode, unspecified; F41.9 Anxiety disorder, unspecified; F17.210 Nicotine dependence, cigarettes, uncomplicated; Z90.711 Acquired absence of uterus with remaining cervical stump; Z90.722 Acquired absence of ovaries, bilateral; Z90.49 Acquired absence of other specified parts of digestive tract; Z98.51 Tubal ligation status; Z90.89 Acquired absence of other organs; Z79.899 Other long term (current) drug therapy; Z88.0 Allergy status to penicillin